=== PATIENT | male | born 1935 | race Caucasian/White ===

== ENCOUNTER 2017-04-10 09:13 | Emergency (ER) | payer MEDICARE, OTHER ==
[2017-04-10] MEDS: Lidocaine 1% 5ml(IM or SUTURE)(PAIN CLINIC) IJ ONE (09:38)
[2017-04-10 09:48] VITALS: BP 128/70
--- NOTE | 2017-04-10 10:16 | ED Physician Documentation ---
General Adult - HISTORIAN Historian: patient - HPI Stated Complaint: laceration Chief Complaint: Laceration/Recheck/Suture Onset: minutes Further Comments: yes (81 year old male patient presents with laceration to tip of 4th digit from clean kitchen knife. Last tetanus 1 year ago.) - ROS CONST: no problems EYES/ENT: none CVS/RESP: none GI/: none MS/SKIN/LYMPH: none NEURO/PSYCH: denies: headache - PAST HX Past History: hypertension, other (BPH, HLD) Allergies/Adverse Reactions: Allergies Allergy/AdvReac Type Severity Reaction Status Date / Time Penicillins Allergy Intermediate Hives Verified 04/10/17 09:30 Home Medications: Ambulatory Orders Medication Instructions Recorded Atorvastatin Calcium [Lipitor] 40 mg PO HS 11/23/14 Finasteride [Proscar] 5 mg PO D 11/23/14 Metoprolol Tartrate [Lopressor] 25 mg PO BID 11/23/14 Tamsulosin HCl [Flomax] 0.4 mg PO [id number] 11/23/14 amLODIPine BESYLATE [Norvasc] 5 mg PO 0900 11/23/14 - SOCIAL HX Smoking History: non-smoker - FAMILY HX Family History: No - VITAL SIGNS Vital Signs: Vital Signs Temp Pulse Resp BP Pulse Ox 98.2 F 68 20 128/70 97 04/10/17 10:34 04/10/17 10:34 04/10/17 10:34 04/10/17 10:34 04/10/17 10:34 - REVIEWED ASSESSMENTS Nursing Assessment Reviewed: Yes Vitals Reviewed: Yes Procedures Wound Location: other (right 4th digit) Wound Length: 1cm Wound's Depth, Shape: flap Wound Explored: clean Irrigated w/ Saline (ccs): 100 Betadine Prep?: No (chlorhexidine) Anesthesia: 1% Lidocaine (digital block) Volume of Anesthetic: 5 Suture Size/Type: 5:0 Number of Sutures: 3 Layer Closure?: No Progress: 936 Digital block to right 4th phalanx; wound cleaned with chlorhexidine and NS. 1005 Flap repaired with 5.0 ethilon x 3 sutures, edges well approximated patient tolerated well, reviewed wound care instructions. Verbalized understanding. ED Results Lab/Radiology - Orders Orders: ED Orders Category Date Time Status Lidocaine 1% 5ml(IM or SUTURE) [Xylocaine] Med 04/10/17 09:30 Discontinued 50 mg IJ NOW ONE General Adult Physical Exam - PHYSICAL EXAM GENERAL APPEARANCE: [id number] N EENT: eye inspection normal, LOU, other ([place]) RESPIRATORY: no resp distress CVS: reg rate & rhythm SKIN: warm/dry, normal color, other (distal tip of right 4th digit with 1 cm flap laceration; 3mm deep; no tendon or bone involvement. ) NEURO: oriented X3, motor nml, sensation nml, mood/affect nml Discharge Clincal Impression: Finger laceration Qualifiers: Encounter type: initial encounter Finger: ring finger Damage to nail status: without damage Foreign body presence: without foreign body Laterality: right Qualified Code(s): S61.214A - Laceration without foreign body of right ring finger without damage to nail, initial encounter Referrals: Primary Doctor,No [Primary Care Provider] - 2 Days Additional Instructions: Keep the wound clean and dry until it has healed. You can wash or shower after 24 hours. Do not soak the wound in water and make sure it is dry afterwards (gently pat the area dry with a clean towel). Do not get into a swimming pool, hot tub, barney or river until your stitches are removed. To remove your dressing, gently pull it off. If needed, you can dampen it with water then gently pull it off. Clean the laceration twice a day with hibiclens and rinse with water clean away any scabbed area Apply thin coat of antibiotic ointment after cleaning the wound. Cover with non-adherent bandage if able. If you have pain, take simple pain relief medication such as Tylenol or ibuprofen. If bandages or dressings get wet, they will need to be changed. Call your doctor for any signs of symptom of infection redness, drainage, pain. Have your stitches removed at your doctors office in 7-10 days. Condition: Stable Disposition: 01 HOME, SELF-CARE Decision to Admit: NO Decision Time: 10:16
== END 2017-04-10 10:34 | disposition home or self-care (01) ==
LOC: ED 09:13
DX: S61.214A Laceration without foreign body of right ring finger without damage to nail, initial encounter (principal); E78.5 Hyperlipidemia, unspecified; I10 Essential (primary) hypertension; N40.0 Benign prostatic hyperplasia without lower urinary tract symptoms; W26.0XXA Contact with knife, initial encounter; Y93.9 Activity, unspecified; Y92.009 Unspecified place in unspecified non-institutional (private) residence as the place of occurrence of the external cause; Y99.9 Unspecified external cause status
CPT/HCPCS: 12001; 99283